=== PATIENT | male | born 1970 | race Caucasian/White ===

== ENCOUNTER 2018-02-21 04:46 | Emergency (ER) | payer OTHER ==
[2018-02-21] MEDS ORDERED: Morphine 10 MG/ML VIAL ONE (05:17)
[2018-02-21] MEDS ORDERED: Ondansetron HCl/PF 4 MG/2 ML Vial ONE (05:17)
[2018-02-21 05:41] LABS: Hemoglobin 15.4 g/dL (14.0-18.0); Mean Corpuscular HGB CONC 35.3 g/dL (32.0-36.0); Mean Corpuscular Hemoglobin 31.5 pg (27.0-31.0); Mean Corpuscular Volume 89.2 fl (80.0-94.0); Mean Platelet Volume 7.5 fL (7.4-10.4); Platelet Count 214 thou/uL (130-400); RBC Distribution Width 10.7 % (11.5-14.5); Red Blood Cell (RBC) Count 4.89 mill/uL (4.70-6.10); White Blood Cell (WBC) Count 13.2 thou/uL (4.8-10.8)
[2018-02-21 05:49] LABS: Band 6 % (5-11); Eosinophils 1 % (0-10); Lymphocytes 9 % (21-51); MDiff Complete? YES; Monocytes 6 % (0-10); Neutrophil 75 % (42-75); Reactive Lymphocytes 3 % (0-10)
[2018-02-21 05:56] LABS: ALT (SGPT) 30 U/L (8-55); AST (SGOT) 21 U/L (5-34); Albumin 4.5 g/dL (3.5-5.0); Alkaline Phosphatase 47 U/L (40-150); Anion Gap 13 mmol/L (10-20); BUN (Urea Nitrogen) 11 mg/dL (8.9-20.6); Bilirubin, Total 1.3 mg/dL (0.2-1.2); Calc. Creatinine Clearance 0 mL/min (70-130); Calcium 9.4 mg/dL (7.8-10.44); Carbon Dioxide 27 mmol/L (22-29); Chloride 99 mmol/L (98-107); Estimated GFR-MDRD 83; Globulin 2.5 g/dL (2.4-3.5); Glucose 129 mg/dL (70-105); Lipase 18 U/L (8-78); Potassium 3.9 mmol/L (3.5-5.1); Sodium 135 mmol/L (136-145)
[2018-02-21 06:39] LABS: Bilirubin Negative (Negative); Blood, Urine Negative (Negative); Clarity Clear (Clear); Glucose, Urine (Dipstick) Negative (Negative); Leukocyte Negative (Negative); Nitrite Negative (Negative); Protein, Urine (Dipstick) Negative (Neg-Trace); Urobilinogen 0.2 mg/dL (0.2-1.0)
[2018-02-21] MEDS ORDERED: Sodium Chloride 0.9% 100 ML ONE (07:06)
[2018-02-21] MEDS ORDERED: Piperacillin/Tazobactam 4.5 GM VIAL ONE (07:06)
--- NOTE | 2018-02-21 09:27 | CT ---
PRELIMINARY REPORT/[facility]/EMERGENTY AFTER-HOURS PROCEDURE CT Abdomen and Pelvis Without Intravenous Contrast CLINICAL HISTORY: 47 years old, male; Pain; Abdominal pain; Patient HX: C/O generalized abdominal "pressure". States he feels constipated, last bm was yesterday but states it was small. Also C/O nausea. TECHNIQUE: Axial computed tomography images of the abdomen and pelvis without intravenous contrast. Coronal refo rmatted images were created and reviewed. COMPARISON: No relevant prior studies available. FINDINGS: The lung bases are clear. Gallbladder upper range of normal in size, transverse diameter of 3.9 cm. No visible gallstones or other definite gallbladder abnormality by CT. Ultrasound could be more sensi tive for detecting gallstones, if clinically needed. No biliary tree dilation. There is a 2 cm low at tenuation area in the lateral/posterior right lobe of the liver. This does not appear to represent a cyst. The appearance is nonspecific, but this may represent cavernous hemangioma. Other etiologies no t excluded. If there is clinical concern for other liver mass, MRI could be more specific. No hydronephrosis of either kidney. No visible renal or ureteral calculus. No perinephric fluid. Unremarkable appearance of the spleen, adrenal glands, and pancreas. No free ai r, ascites, or bowel distention. No evidence for abdominal aortic aneurysm. No retroperitoneal adenop athy. CT pelvis: There are moderate inflammatory changes around the mid to lower descending colon, compatible with the diagnosis of diverticulitis. There appears to be an inflamed diverticulum in this region. Mild assoc iated mucosal/wall thickening. Small amount of pericolonic fluid. No definite pericolonic abscess at this time. Other etiologies that could present with a similar appearance would include; other forms o f colitis/focal inflammatory bowel diseases, and less likely bowel ischemia, or neoplasm. Appropriate followup recommended. The appendix is visualized and appears normal. No abnormal mass or fluid colle ction in the pelvis. IMPRESSION: Findings compatible with acute diverticulitis, see above details. No free air or bowel distention. Normal appendix. Gallbladder upper normal in size, no visible gallstones by CT. No hydronephrosis of either kidney. No visible renal or ureteral calculus. Nonspecific liver findings, see above. Other findings discussed above. Thank you for allowing us to participate in the care of your patient. Dictated and Authenticated by: Ernesto Martinez MD 02/21/2018 6:46 AM Central Time ([place] & [place]) FINAL REPORT CT ABDOMEN AND PELVIS WITHOUT CONTRAST: Date: 02/21/18 FINDINGS/IMPRESSION: I agree with the preliminary report given by Micah. POS: [facility]
== END 2018-02-21 07:58 | disposition home or self-care (01) ==
LOC: ERS 04:46 → SCSER 07:58
DX: K57.32 Diverticulitis of large intestine without perforation or abscess without bleeding (principal)
CPT/HCPCS: 74176; 80053; 81003; 83605; 83690; 85025; 96361; 96365; 96375; J2270; J2405; J2543; J7050